=== PATIENT | female | born 1995 | race African-American/Black ===

== ENCOUNTER 2022-10-12 16:01 | Emergency (ER) | payer OTHER ==
[2022-10-12] MEDS ORDERED: NA CHLORIDE 0.9% 1,000 ML ONE ×2 (17:09→20:47)
[2022-10-12 17:21] LABS: Urine Blood 3+ (Negative); Urine Glucose Negative (Negative); Urine Protein 2+ (Negative); Urine Specific Gravity 1.025 (1.005-1.030); Urine pH 6.5 (5.0-7.0)
[2022-10-12] MEDS ORDERED: PROMETHAZINE INJ 25 MG/ML AMP ONE (17:29)
[2022-10-12 17:30] LABS: Urine Bacteria 20-50 /HPF (<20); Urine Mucus 3+ /HPF (None Seen); Urine RBC >50 /HPF (None Seen); Urine WBC Clump Rare /HPF (None Seen)
[2022-10-12] MEDS ORDERED: NA CHLORIDE 0.9% 250 ML ONE (17:30)
[2022-10-12] MEDS ORDERED: KETOROLAC 30 MG/ML INJ ONE (17:30)
[2022-10-12 17:35] LABS: Urine Specific Gravity/Preg 1.025 (1.005-1.030)
[2022-10-12] MEDS ORDERED: CEFTRIAXONE 1000 MG/VIAL ONE (18:11)
[2022-10-12 22:13] VITALS: TEMP 98
[2022-10-12 22:18] VITALS: BP 108/65; O2SAT 100
--- NOTE | 2022-10-25 16:19 | ER ---
Nurse's Notes [facility] Name: Johanna Meneses Age: 27 yrs Sex: Female : 1995 Arrival Date: 10/12/2022 Time: 16:06 Bed 12 Private MD: Diagnosis: Migraine, unspecified, not intractable, without status migrainosus;UTI/ Urinary tract infection, site not specified Presentation: 10/12 16:20 Chief complaint: Patient states: "The past 3 years I've been getting migraines. I've mb9 had this one for 3 days and its not getting better. the lights are making my head spin. Tyle"nol isn't helping. Coronavirus screen: Vaccine status: Patient reports being unvaccinated. Ebola Screen: No symptoms or risks identified at this time. Initial Sepsis Screen: Does the patient meet any 2 criteria? No. Patient's initial sepsis screen is negative. Does the patient have a suspected source of infection? No. Patient's initial sepsis screen is negative. Risk Assessment: Do you want to hurt yourself or someone else? Patient reports no desire to harm self or others. Onset of symptoms was October 10, 2022. 16:20 Method Of Arrival: Ambulatory [facility] 16:20 Acuity: OLYA 3 mb9 Triage Assessment: 16:25 Headache History: The patient has had previous headaches and this one is similar to mb9 previous episodes. General: Appears in no apparent distress. Behavior is calm, cooperative. Pain: Complains of pain in right side of head Pain does not radiate. Pain currently is 10 out of 10 on a pain scale. Quality of pain is described as throbbing, Pain began 2-3 days ago. Is continuous. EENT: No signs and/or symptoms were reported regarding the EENT system. Neuro: Garcia Agitation-Sedation Scale (RASS): 0 - Alert and Calm Level of Consciousness is awake, alert, obeys commands, Oriented to person, place, time, situation, Appropriate for age Reports dizziness, headache. Cardiovascular: Patient's skin is warm and dry. Respiratory: Airway is patent Respiratory effort is even, unlabored, Respiratory pattern is regular, symmetrical. GI: Patient currently denies nausea. Derm: Skin is pink, warm \\T\\ dry. Musculoskeletal: Range of motion: intact in all extremities. 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 - Social history:: Smoking status: Patient denies any tobacco usage or history of. Screenin:[facility] ED Fall Risk Assessment (Adult) History of falling in the last 3 months, mb9 including since admission No falls in past 3 months (0 pts) Confusion or Disorientation No (0 pts) Intoxicated or Sedated No (0 pts) Impaired Gait No (0 pts) Mobility Assist Device Used No (0 pt) Altered Elimination No (0 pt) Score/Fall Risk Level 0 - 2 = Low Risk Oriented to surroundings, Maintained a safe environment, Educated pt \\T\\ family on fall prevention, incl call for assistance when getting out of bed. Abuse screen: Denies threats or abuse. Nutritional screening: No deficits noted. Tuberculosis screening: No symptoms or risk factors identified. Assessment: 16:27 Reassessment: See triage assessment. mb9 17:30 Neuro: Level of Consciousness is awake, alert, obeys commands, Oriented to person, aa5 place, time, situation. Respiratory: Airway is patent Respiratory effort is even, unlabored, Respiratory pattern is regular, symmetrical. Derm: Skin is dry, Skin is normal, Skin temperature is warm. 18:20 Reassessment: Pt resting in bed with eyes closed, respirations even and unlabored, easy aa5 to awaken to verbal stimuli. . 20:59 Pain: Denies pain. kb3 Vital Signs: 16:20 BP 128 / 74; Pulse 79; Resp 16; Temp 98(O); Pulse Ox 98% ; Weight 93.44 kg; Height 5 mb9 ft. 3 in. ; Pain 10/10; 17:30 BP 107 / 64; Pulse 72; Resp 16 S; Pulse Ox 100% on R/A; aa5 18:20 BP 105 / 64; Pulse 70; Resp 16 S; Pulse Ox 99% on R/A; aa5 20:59 BP 108 / 65; Pulse 69; Resp 18; Pulse Ox 100% ; kb3 16:20 Body Mass Index 36.49 (93.44 kg, 160.02 cm) mb9 16:20 Pain Scale: Adult mb9 Afia Coma Score: 17:19 Eye Response: spontaneous(4). Motor Response: obeys commands(6). Verbal Response: snw oriented(5). Total: 15. ED Course: 16:06 Patient arrived in ED. mr 16:19 Lluvia Fuchs, [facility] snw 16:19 Mark Donald MD is Attending Physician. snw 16:20 Arm band placed on. mb9 16:24 Triage completed. mb9 16:55 Aan Boyle, ANNI is Primary Nurse. mb9 16:56 Bed in low position. Call light in reach. Side rails up X 1. Client placed on mb9 continuous cardiac and pulse oximetry monitoring. NIBP monitoring applied. 17:16 Inserted saline lock: 20 gauge in right antecubital area, using aseptic technique. mb9 17:19 Urine collected: clean catch specimen, cloudy, Urine micro and culture sent to lab. aa5 17:22 Urine Culture Sent. kj1 17:22 Urine Microscopic Only Sent. kj1 20:59 No provider procedures requiring assistance completed. IV discontinued, intact, kb3 bleeding controlled, No redness/swelling at site. Administered Medications: 17:15 Drug: NS 0.9% IV 1000 ml Route: IV; Rate: 1000 ml; Site: right antecubital; mb9 18:19 Follow up: IV Status: Completed infusion; IV Intake: 1000ml aa5 17:30 Drug: Ketorolac IVP 15 mg Route: IVP; Site: right antecubital; aa5 18:20 Follow up: Response: No adverse reaction aa5 17:30 Drug: Promethazine IVP 25 mg Route: IVP; Site: right antecubital; aa5 18:20 Follow up: Response: No adverse reaction aa5 17:30 Drug: NS 0.9% IV 250 ml Route: IV; Rate: 250 bolus; Site: right antecubital; aa5 18:19 Follow up: IV Status: Completed infusion; IV Intake: 250ml aa5 20:49 Follow up: Response: No adverse reaction; IV Status: Completed infusion; IV Intake: kb3 250ml 18:15 Drug: Rocephin IV 1 grams Route: IV; Rate: calculated rate; Site: right antecubital; aa5 20:48 Follow up: Response: No adverse reaction; IV Status: Completed infusion; IV Intake: kb3 100ml 20:48 Not Given (Patient Refused): NS 0.9% IV 1000 ml IV at 1 bolus Per protocol; 1000 mL kb3 bolus Medication: 16:27 VIS not applicable for this client. mb9 Intake: 18:19 IV: 250ml; Total: 250ml. aa5 18:19 IV: 1000ml; Total: 1250ml. aa5 20:48 IV: 100ml; Total: 1350ml. kb3 20:49 IV: 250ml; Total: 1600ml. kb3 Outcome: 20:38 Discharge ordered by MD. snw 20:59 Discharged to home ambulatory. kb3 20:59 Condition: stable 20:59 Discharge instructions given to patient, Instructed on discharge instructions, follow up and referral plans. medication usage, Demonstrated understanding of instructions, follow-up care, medications, Prescriptions given X 2. 21:00 Patient left the ED. kb3 Signatures: Lluvia Fuchs, EARLY CHILDHOOD SERVICES COORDINATOR-C EARLY CHILDHOOD SERVICES COORDINATOR-Csnw Ana Mccann Audri, RN RN aa5 [employer] kj1 Elva Valdes, RN RN kb3 Ana Boyle, RN RN mb9 Corrections: (The following items were deleted from the chart) 17:08 16:20 Acuity: OLYA 4 mb9 mb9
--- NOTE | 2022-10-25 16:19 | EDPHYS ---
Physician Documentation [facility] Name: Johanna Meneses Age: 27 yrs Sex: Female : 1995 Arrival Date: 10/12/2022 Time: 16:06 Bed 12 Private MD: ED Physician Mark Donald HPI: 10/12 17:12 This 27 yrs old Black Female presents to ER via Ambulatory with complaints of Headache. snw 17:12 The patient complains of pain to the top of head and forehead. The patient describes snw the headache as constant. Onset: The symptoms/episode began/occurred 3 day(s) ago, and became persistent. Associated signs and symptoms: Pertinent positives: dizziness, Photophobia. Severity of symptoms: At its worst the pain was moderate, in the emergency department the pain is unchanged, despite home interventions. Headache History: The patient has had previous headaches and this one is similar to previous episodes, and this one is less severe than previous episodes. The patient has experienced similar episodes in the past, multiple times. The patient has not recently seen a physician. 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 - Social history:: Smoking status: Patient denies any tobacco usage or history of. ROS: 17:12 Constitutional: Negative for fever, chills, and weight loss, Eyes: Negative for injury, snw pain, redness, and discharge, ENT: Negative for injury, pain, and discharge, Neck: Negative for injury, pain, and swelling, Cardiovascular: Negative for chest pain, palpitations, and edema, Respiratory: Negative for shortness of breath, cough, wheezing, and pleuritic chest pain, Abdomen/GI: Negative for abdominal pain, nausea, vomiting, diarrhea, and constipation, Back: Negative for injury and pain, : Negative for injury, bleeding, discharge, and swelling, MS/Extremity: Negative for injury and deformity, Skin: Negative for injury, rash, and discoloration, Psych: Negative for depression, anxiety, suicide ideation, homicidal ideation, and hallucinations. 17:12 Neuro: Positive for headache, of the top of head and forehead. Exam: 17:11 Constitutional: This is a well developed, well nourished patient who is awake, alert, snw and in no acute distress. Head/Face: Normocephalic, atraumatic. Eyes: Pupils equal round and reactive to light, extra-ocular motions intact. Lids and lashes normal. Conjunctiva and sclera are non-icteric and not injected. Cornea within normal limits. Periorbital areas with no swelling, redness, or edema. ENT: Nares patent. No nasal discharge, no septal abnormalities noted. Tympanic membranes are normal and external auditory canals are clear. Oropharynx with no redness, swelling, or masses, exudates, or evidence of obstruction, uvula midline. Mucous membranes moist. Neck: Trachea midline, no thyromegaly or masses palpated, and no cervical lymphadenopathy. Supple, full range of motion without nuchal rigidity, or vertebral point tenderness. No Meningismus. Chest/axilla: Normal chest wall appearance and motion. Nontender with no deformity. No lesions are appreciated. Cardiovascular: Regular rate and rhythm with a normal S1 and S2. No gallops, murmurs, or rubs. Normal PMI, no JVD. No pulse deficits. Respiratory: Lungs have equal breath sounds bilaterally, clear to auscultation and percussion. No rales, rhonchi or wheezes noted. No increased work of breathing, no retractions or nasal flaring. Abdomen/GI: Soft, non-tender, with normal bowel sounds. No distension or tympany. No guarding or rebound. No evidence of tenderness throughout. Back: No spinal tenderness. No costovertebral tenderness. Full range of motion. Skin: Warm, dry with normal turgor. Normal color with no rashes, no lesions, and no evidence of cellulitis. MS/ Extremity: Pulses equal, no cyanosis. Neurovascular intact. Full, normal range of motion. Neuro: Awake and alert, GCS 15, oriented to person, place, time, and situation. Cranial nerves II-XII grossly intact. Motor strength 5/5 in all extremities. Sensory grossly intact. Cerebellar exam normal. Normal gait. Psych: Awake, alert, with orientation to person, place and time. Behavior, mood, and affect are within normal limits. Vital Signs: 16:20 BP 128 / 74; Pulse 79; Resp 16; Temp 98(O); Pulse Ox 98% ; Weight 93.44 kg; Height 5 mb9 ft. 3 in. ; Pain 10/10; 17:30 BP 107 / 64; Pulse 72; Resp 16 S; Pulse Ox 100% on R/A; aa5 18:20 BP 105 / 64; Pulse 70; Resp 16 S; Pulse Ox 99% on R/A; aa5 20:59 BP 108 / 65; Pulse 69; Resp 18; Pulse Ox 100% ; kb3 16:20 Body Mass Index 36.49 (93.44 kg, 160.02 cm) mb9 16:20 Pain Scale: Adult mb9 Afia Coma Score: 17:19 Eye Response: spontaneous(4). Motor Response: obeys commands(6). Verbal Response: snw oriented(5). Total: 15. MDM: 17:02 Patient medically screened. snw 17:19 Differential diagnosis: migraine, sinusitis, uti. Data reviewed: vital signs, nurses snw notes, lab test result(s). 20:08 Counseling: I had a detailed discussion with the patient and/or guardian regarding: the snw historical points, exam findings, and any diagnostic results supporting the discharge/admit diagnosis, the need for outpatient follow up, for definitive care, to return to the emergency department if symptoms worsen or persist or if there are any questions or concerns that arise at home. Response to treatment: the patient's symptoms have markedly improved after treatment, patient is well hydrated. Pt is sleeping in no distress, pain level on awakening her decreased to 3-4. Will need ride or to sleep a bit longer. Special discussion: Based on the history and exam findings, there is no indication for further emergent testing or inpatient evaluation. I discussed with the patient/guardian the need to see the primary care provider for further evaluation of the symptoms. 10/12 17:03 Order name: Urine Culture snw 10/12 17:03 Order name: Urine Microscopic Only; Complete Time: 17:31 snw 10/12 17:21 Order name: Urine Dipstick-Ancillary; Complete Time: 17:25 EDMS 10/12 17:22 Order name: Urine --Ancillary (enter results); Complete Time: 17:36 kj1 10/12 17:03 Order name: Urine Dipstick-Ancillary (obtain specimen); Complete Time: 17:19 snw 10/12 17:03 Order name: Urine Test (obtain specimen); Complete Time: 17:19 snw Administered Medications: 17:15 Drug: NS 0.9% IV 1000 ml Route: IV; Rate: 1000 ml; Site: right antecubital; mb9 18:19 Follow up: IV Status: Completed infusion; IV Intake: 1000ml aa5 17:30 Drug: Ketorolac IVP 15 mg Route: IVP; Site: right antecubital; aa5 18:20 Follow up: Response: No adverse reaction aa5 17:30 Drug: Promethazine IVP 25 mg Route: IVP; Site: right antecubital; aa5 18:20 Follow up: Response: No adverse reaction aa5 17:30 Drug: NS 0.9% IV 250 ml Route: IV; Rate: 250 bolus; Site: right antecubital; aa5 18:19 Follow up: IV Status: Completed infusion; IV Intake: 250ml aa5 20:49 Follow up: Response: No adverse reaction; IV Status: Completed infusion; IV Intake: kb3 250ml 18:15 Drug: Rocephin IV 1 grams Route: IV; Rate: calculated rate; Site: right antecubital; aa5 20:48 Follow up: Response: No adverse reaction; IV Status: Completed infusion; IV Intake: kb3 100ml 20:48 Not Given (Patient Refused): NS 0.9% IV 1000 ml IV at 1 bolus Per protocol; 1000 mL kb3 bolus Disposition: 10/13 16:54 Co-signature as Attending Physician, Mark Donald MD I reviewed the patient's care rt provided by the Advanced Practice Provider and agree with the diagnosis and treatment plan. Disposition Summary: 10/12/22 20:38 Discharge Ordered Location: Home snw Condition: Stable snw Diagnosis - Migraine, unspecified, not intractable, without status migrainosus snw - UTI/ Urinary tract infection, site not specified snw Followup: snw - With: Emergency Department - When: As needed - Reason: Worsening of condition Followup: snw - With: Private Physician - When: 2 - 3 days - Reason: Recheck today's complaints, Continuance of care, Re-evaluation by your physician Discharge Instructions: - Discharge Summary Sheet snw - Dehydration, Adult snw - Migraine Headache snw - Urinary Tract Infection, Adult snw - Rehydration, Adult snw Forms: - Work release form snw - Medication Reconciliation Form snw - Thank You Letter snw - Antibiotic Education snw - Prescription Opioid Use snw Prescriptions: - Augmentin 875-125 mg Oral Tablet - take 1 tablet by ORAL route every 12 hours for 10 days; 20 tablet; Refills: 0, snw Product Selection Permitted - promethazine 25 mg Oral Tablet - take 1 tablet by ORAL route every 6 hours As needed; 20 tablet; Refills: 0, snw Product Selection Permitted Signatures: Dispatcher [employer] EDMS Lluvia Fuchs, ETCHED CIRCUIT PROCESSOR-C ETCHED CIRCUIT PROCESSOR-Csnw Belkis Oropeza, RN RN aa5 Ana Boyle RN RN mb9 Mark Donald MD MD rt Elva Valdes RN kb3
== END 2022-10-12 21:00 | disposition home or self-care (01) ==
LOC: ER 16:01
DX: G43.009 Migraine without aura, not intractable, without status migrainosus (principal); N39.0 Urinary tract infection, site not specified
CPT/HCPCS: 96365; 87088; 87086; 81025; 87077; 87186; 96375; 99284; 96366; J2550; J7050; J7030 ×2; 81003; 81015

== ENCOUNTER 2023-07-02 11:29 | Emergency (ER) | payer OTHER, SELFPAY ==
--- OUTSIDE RECORDS SUMMARY | 2023-07-02 11:33 | XMS REPORT | Continuity of Care Document ---
:1995 Author Organization [facility] t Address [address] [facility]. [address] [place] [address] Care Team Providers Name Role Phone Pcp MD, Charlotte Primary Care Physician Unavailable ELHAM KAUR Attending Clinician Unavailable Kiara Holder MD Attending Clinician Travis Sandoval MD Attending Clinician Donn Benjamin DO Attending Clinician ADI LACY Attending Clinician Unavailable HEIDI PICKENS Attending Clinician Unavailable MAL FRANCISCO Attending Clinician Unavailable NOAH BOOTHE Attending Clinician Unavailable Payers Payer Name Policy Type Policy Number Effective Date Expiration Date S [employer]BS PPO POS EPO [id number] 2014 CHOICE 00:00:00 MEDICAID [facility] [id number] 2018 00:00:00 Problems This patient has no known problems. Allergies, Adverse Reactions, Alerts Allergy Allergy Status Severity Reaction(s) Onset Inactive Treating Comm ents Source Name Type Date Date Clinician NO KNOWN Allergy Active [facility] ALL[facility] S Family History Family Member Diagnosis Comments Start Date Stop Date Source Natural father No Known Problem [facility] Natural mother No Known Problem [facility] Social History Social Habit Start Date Stop Date Quantity Comments Source History SDOH [facility] Alcohol Frequency Medical Center History SDOH [facility] Alcohol Std Drinks [facility] History SDOH [facility] Alcohol Binge Medical [facility] Sexual orientation [facility] Alcohol intake 2022-01-14 2022-01-14 Current drinker [facility]IANA [facility]00 of [facility] (finding) Tobacco use and 2020-03-04 2020-03-04 Smokeless tobacco [facility] exposure 00:00:00 00:00:00 non-user [facility] Alcohol Comment 2020-03-04 2020-03-04 socially DIANA Rivera kes 00:00:00 00:00:00 [facility] Center Sex Assigned At [birth year] DIANA Owens 00:00:00 00:00:00 Medical Center Smoking Status Start Date Stop Date Source Never smoked tobacco [facility] Medications Ordered Filled Start Stop Current Ordering Indication Dosage Frequency Signature Comments Components Source Medication Medication Date Date Medication? Clinician (SIG) Name Name doxycycline 2020- No 100mg Q.5D Take [address] (VIBRA-TABS 7-25 08-04 tablet [facility] ) 100 MG 00:00: 23:59 (100 mg Medic al tablet 00 :00 total) by Center mouth 2 (two) times daily for 10 days. doxycycline 2020- No 100mg Q.5D Take [address] (VIBRA-TABS 7-25 08-04 tablet [facility] ) 100 MG 00:00: 23:59 (100 mg Medic al tablet 00 :00 total) by Center mouth 2 (two) times daily for 10 days. amoxicillin 2020- No 500mg Q.5D Take [address] (AMOXIL) 01-02 capsule [facility] 500 MG 00:00: 23:59 (500 mg Medical capsule 00 :00 total) by Center mouth 2 (two) times daily for 20 doses. amoxicillin 2020- No 500mg Q.5D Take [address] (AMOXIL) 01-02 [facility] 500 MG 00:00: 23:59 (500 mg Medical capsule 00 :00 total) by Center mouth 2 (two) times daily for 20 doses. diphenhydrA 2020- No 1{tbl} QD Take [address] MINE-acetam 3-31 -31 tablet by Armida hodges inophen 12:21: 00:00 mouth Medical (TYLENOL 22 :00 daily. Center PM) 25-500 mg Tab diphenhydrA 2020- No 1{tbl} QD Take [address] MINE-acetam 11-01 tablet by Armida mendenhall 12:21: 00:00 mouth Medical (TYLENOL 22 :00 daily. Center PM) 25-500 mg Tab naproxen 2020- No 500mg Take 1 [facility] (NAPROSYN[facility] 11-01 [facility] 500 MG 00:00: 00:00 (500 mg Medical tablet 00 :00 total) by Center mouth 2 (two) times daily with breakfast and dinner. naproxen 2020- No 500mg Take 1 [facility] (NAPROSYN[facility] 11-01 [facility] 500 MG 00:00: 00:00 (500 mg Medical tablet 00 :00 total) by Center mouth 2 (two) times daily with breakfast and dinner. Vital Signs Vital Name Observation Time Observation Value Comments Source HEIGHT 2022-01-14 13:15:00 160 cm WEIGHT 2022-01-14 13:15:00 89.812 kg HEIGHT 2022-01-14 13:15:00 160 cm WEIGHT 2022-01-14 13:15:00 89.812 kg HEIGHT 2021-02-25 08:56:00 157.5 cm WEIGHT 2021-02-25 08:56:00 92.08 kg HEIGHT 2021-02-25 08:56:00 157.5 cm WEIGHT 2021-02-25 08:56:00 92.08 kg HEIGHT 2021-01-02 10:56:00 160 cm WEIGHT 2021-01-02 10:56:00 94.802 kg HEIGHT 2021-01-02 10:56:00 160 cm WEIGHT 2021-01-02 10:56:00 94.802 kg WEIGHT 2020-11-01 12:32:00 93.895 kg HEIGHT 2020-11-01 12:32:00 160 cm WEIGHT 2020-11-01 12:32:00 93.895 kg HEIGHT 2020-11-01 12:32:00 160 cm HEIGHT 2020-03-04 00:00:00 160 cm WEIGHT 2020-03-04 00:00:00 96.163 kg Systolic blood 2021-02-25 10:39:00 150 mm[Hg] [facility] Diastolic blood 2021-02-25 10:39:00 76 mm[Hg] [facility] Heart rate 2021-02-25 10:39:00 108 /min [facility] Respiratory rate 2021-02-25 10:39:00 20 /min [facility] Oxygen saturation in 2021-02-25 10:39:00 98 /min [facility] Arterial blood by Medical Ce nter Pulse oximetry Body temperature 2021-02-25 08:56:00 37.72 Elizabeth [facility] Body height 2021-02-25 08:56:00 157.5 cm [facility] Body weight 2021-02-25 08:56:00 92.08 kg [facility] BMI 2021-02-25 08:56:00 37.13 kg/m2 [facility] Procedures Procedure Date / Time Performed Performing Clinician Sourc e XR CHEST 2 VIEWS 2021-02-25 10:19:00 Kiara Holder I [facility] Plan of Care Planned Activity Planned Date Details Comments Source Future Scheduled 2029-01-05 DTAP/TDAP/TD VACCINES ([address] [facility] Test 00:00:00 - Td or Tdap) [code = Medica l Center DTAP/TDAP/TD VACCINES (3 - Td or Tdap)] Future Scheduled 2029-01-05 DTAP/TDAP/TD VACCINES ([address] [facility] Test 00:00:00 - Td or Tdap) [code = Medica l Center DTAP/TDAP/TD VACCINES (3 - Td or Tdap)] Future Scheduled 2029-01-05 DTAP/TDAP/TD VACCINES ([address] [facility] Test 00:00:00 - Td or Tdap) [code = Medica l Center DTAP/TDAP/TD VACCINES (3 - Td or Tdap)] Future Scheduled 2023-04-04 Influenza Vaccine (#1) [facility] 00:00:00 [code = Influenza Vaccine Ms dicvt Center (#1)] Future Scheduled 2023-01-[address] [facility] Test 00:00:00 Counseling and Screening Med ical Center (12+) [code = Tobacco Cessation Counseling and Screening (12+)] Future Scheduled 2022-08-[address] [facility] Test 00:00:00 (12+) [code = DEPRESSION Med ical Center SCREENING (12+)] Future Scheduled 2021-04-04 INFLUENZA VACCINE (#1) [facility] 00:00:00 [code = INFLUENZA VACCINE Me dical Center (#1)] Future Scheduled 2021-04-04 INFLUENZA VACCINE (#1) [facility] 00:00:00 [code = INFLUENZA VACCINE Me dical Center (#1)] Future Scheduled 2020-08-[address] [facility] Test 00:00:00 (12+) [code = DEPRESSION Med ical Center SCREENING (12+)] Future Scheduled 2020-08-[address] [facility] Test 00:00:00 (12+) [code = DEPRESSION Med ical Center SCREENING (12+)] Future Scheduled 2015 Screening for malignant [facility] Test 00:00:00 neoplasm of cervix Medical C enter (procedure) [code = 899620288] Future Scheduled 2015 Screening for malignant [facility] Test 00:00:00 neoplasm of cervix Medical C enter (procedure) [code = 460167277] Future Scheduled 2015 Screening for malignant [facility] Test 00:00:00 neoplasm of cervix Medical C enter (procedure) [code = 450481551] Future Scheduled 2014 Lipid panel (procedure) [facility] Test 00:00:00 [code = 53458337] Medical Ce nter Future Scheduled 2014 Lipid panel (procedure) [facility] Test 00:00:00 [code = 25871205] Medical Ce nter Future Scheduled 2014 Lipid panel (procedure) [facility] Test 00:00:00 [code = 13677210] Medical Ce nter Future Scheduled 2012 HEPATITIS C SCREENING [facility] Test 00:00:00 [code = HEPATITIS C Medical Center SCREENING] Future Scheduled 2012 HEPATITIS C SCREENING [facility] 00:00:00 [code = HEPATITIS C Medical Center SCREENING] Future Scheduled 2012 HEPATITIS C SCREENING [facility] 00:00:00 [code = HEPATITIS C Medical Center SCREENING] Future Scheduled [address] [facility] Test 00:00:00 virus screening Medical Cent er (procedure) [code = 732021167] Future Scheduled 2006 COVID-19 VACCINE (1) [facility] Test 00:00:00 [code = COVID-19 VACCINE Med ical Center (1)] Future Scheduled 2006 COVID-19 VACCINE (1) [facility] Test 00:00:00 [code = COVID-19 VACCINE Med ical Center (1)] Future Scheduled 2000 PNEUMOCOCCAL VACCINE 0-[address] [facility] Test 00:00:00 YRS (1 of 2 - PPSV23) Medica l Center [code = PNEUMOCOCCAL VACCINE 0-64 YRS (1 of 2 - PPSV23)] Future Scheduled 2000 PNEUMOCOCCAL VACCINE 0-[address] [facility] Test 00:00:00 YRS (1 of 2 - PPSV23) Medica l Center [code = PNEUMOCOCCAL VACCINE 0-64 YRS (1 of 2 - PPSV23)] Future Scheduled 1995 COVID-19 VACCINE (#1) [facility] 00:00:00 [code = COVID-19 VACCINE Med ical Center (#1)] Encounters Start End Encounter Admission Attending Care Care Encounter Source Date/Time Date/Time Type Type Clinicians Facility Department ID 2022-01-14 2022-01-14 Emergency ER [facility], [facility] Emergency [id number] [facility] 13:15:00 14:50:00 [facility] 2021-03-05 2021-03-05 Outpatient [facility] PENFGZH PRQ COH 00:00:00 00:00:00 WE- 3 2021-02-25 2021-02-25 Emergency [facility], [facility] [id number] [address] 08:45:00 11:38:00 [facility] 2021-02-25 2021-02-25 Emergency ER [facility] Emergency [id number] SLE 08:45:00 08:45:00 2021-02-25 2021-02-[address] [facility] [id number] [facility]00 [facility] 2021-01-02 2021-01-02 Emergency Othee, [facility] [id number] 10:44:00 11:47:00 [facility] 2021-01-02 2021-01-02 Emergency ER [facility] Emergency [id number] SLE 10:44:00 10:44:00 2021-01-02 2021-01-[address] [facility] [id number] [facility] 00:[facility]00 [facility] 2020-11-01 2020-11-01 Emergency Totz, [facility] [id number] 12:20:00 13:00:00 [facility] 2020-11-01 2020-11-01 Emergency ER [facility] Emergency [id number] SLE 12:19:00 12:19:00 2020-11-01 2020-11-[address] [facility] [id number] [facility] 00:[facility] 00:[facility]00 [facility] 2020-03-04 2020-03-04 Emergency ER LACY, [facility] Emergency [id number] SLE 11:18:00 11:18:00 ARANYANEE Results Test Description Test Time Test Comments Results Result Comments Source SCREEN, URINE 2022-01-14 13:59:58 Test Item Value Reference Range Interpretation Comme nts TEST URINE (BEAKER) (test code = 583) Negative Negati ve RAD, SHOULDER, COMPLETE (MIN 2 VIEWS), [id number] 13:51:00Reason for exam:- >SHOULDER INJURYReason for exam:->fall directly on right shoulder.Is the patient ?->Unknown [facility] 1995 Sex: FFINAL REPORT Exam: RAD, SHOULDER, COMPLETE (MIN 2 VIEWS), RIGHTDate: 01/14/2022 1:50 PM Indication:SHOULDER INJURYfall directly on right shoulder.Comparison: None DISCUSSION/IMPRESSION: AP internal/external and Y views of the right shoulder were obtained. Osseous structures appear well mineralized. Osseous structures appear intact. Joint spaces are grossly preserved. Coracoclavicular and acromioclavicular distances are within normal limits. Soft tissues are within normal limits. No radiopaque foreign bodies. Signed: Avani Frye MDReport Verified Date/Time: 01/14/2022 13:51:16 Reading Location: [facility] Radiology Reading Room RAD, CHEST, 2 [id number] 10:32:00Reason for exam:->COUGHIs the patient ?->NoShould this be performed at the bedside?->No [facility] 1995 Sex: FFINAL REPORT Comparison: 09/08/2018 History: Cough Findings: There is airspace consolidation in the upper left lung. The may also be some airspace consolidation at the left lung base. The right lung appears clear. No pleural effusions or pneumothorax. The heart shadow and pulmonary vascularity are normal in appearance. The thoracic aorta appears normal in caliber. No skeletal abno rmalities are visualized. Impression: Left-sided pneumonia. Signed: Naya Salvador Verified Date/Time: 02/25/2021 10:32:45 Reading Location: [address] Transitional Reading Room Electronicallysigned by: NAYA SALVADOR MD on 02/25/2021 10:32 AMRAD, KNEE, COMPLETE (4 VIEWS), [id number] 12:07:00Reason for exam:->KNEE PAINIs the patient ?->NoShould this be performed at the bedside?->NoFINAL REPORT RAD, KNEE, COMPLETE (4 VIEWS), RIGHT INDICATION: KNEE PAIN COMPARISON: None TECHNIQUE: AP, lateral and oblique radiographs of the knee FINDINGS/IMPRESSION:No acute fracture or malalignment Signed: Torsten Cheng Verified Date/Time: 03/04/2020 12:07:53 Reading Location: [place] [id number] Neuro Reading Room Electronically signed by: TORSTEN CHENG MD on03/04/2020 12:07 PMRAD, CHEST, 2 VIEWS 2018-09-08 23:48:00Reason for exam:->URIReason for exam:->EMESISIs the patient ?->YesFINAL REPORT EXAMINATION: 2 view chest CLINICAL INDICATION: Infection. Emesis. IMPRESSION: No evidence of a discrete pneumonia, pulmonary edema or pleural effusion. The heart is mildly prominent. Mediastinal contours are sharp and smooth. No definite evidence of an acute osseous abnormality or pneumothorax. Signed: Bianca Montielort Verified Date/Time: 09/08/2018 23:48:36 Reading Location: [address] Reading Room Electronically signed by: BIANCA MONTIEL M.D. on 0 09/08/2018 11:48 PMRAPID INFLUENZA A&B [id number] 23:42:00 Test Item Value Reference Range Interpretation Comments RAPID INFLUENZA A AG (BEAKER) Negative Negative, Inconclusive (test code = 1622) RAPID INFLUENZA B AG (BEAKER) Negative Negative, Inconclusive (test code = 1623) URINALYSIS W/ REFLEX URINE [id number] 23:40:00 Test Item Value Reference Range Interpretation Comments COLOR (BEAKER) (test Dark Yellow code = 470) CLARITY (BEAKER) Cloudy (test code = 469) SPECIFIC GRAVITY UA 1.033 1.001-1.035 Refracto meter = 1.033 (BEAKER) (test code = 468) PH UA (BEAKER) (test 6.0 5.0-8.0 code = 467) PROTEIN UA (BEAKER) 100 mg/dL Negative A (test code = 464) GLUCOSE UA (BEAKER) Negative Negative (test code = 365) KETONES UA (BEAKER) 40 mg/dL Negative A (test code = 371) BILIRUBIN UA (BEAKER) Positive Negative A (test code = 462) BLOOD UA (BEAKER) Negative Negative (test code = 461) NITRITE UA (BEAKER) Negative Negative (test code = 465) LEUKOCYTE ESTERASE UA Negative Negative (BEAKER) (test code = 466) UROBILINOGEN UA 4.0 mg/dL 0.2-1.0 H (BEAKER) (test code = 463) BACTERIA (BEAKER) Few (test code = 517) MUCUS (BEAKER) (test Moderate code = 1574) TRICHOMONAS (BEAKER) Moderate (test code = 1586) RBC UA-MANUAL <5 /HPF (BEAKER) (test code = 1659) WBC UA-MANUAL <5 /HPF (BEAKER) (test code = 1661) SQUAMOUS EPITHELIAL 10-20 /HPF MANUAL (BEAKER) (test code = 1663) SOURCE(BEAKER) (test code = 2795) SCREEN, [id number] 23:24:00 Test Item Value Reference Range Interpretation Comments TEST URINE (BEAKER) (test Positive code = 583) BASIC METABOLIC [id number] 23:11:00 Test Item Value Reference Range Interpretation Comments SODIUM (BEAKER) 135 meq/L 135-148 (test code = 381) POTASSIUM (BEAKER) 3.8 meq/L 3.6-5.5 (test code = 379) CHLORIDE (BEAKER) 102 meq/L 98-106 (test code = 382) CO2 (BEAKER) (test 23 meq/L 24-32 L code = 355) BLOOD UREA NITROGEN 9 mg/dL 10-26 L (BEAKER) (test code = 354) CREATININE (BEAKER) 0.61 mg/dL 0.50-1.20 (test code = 358) GLUCOSE RANDOM 89 mg/dL 70-110 (BEAKER) (test code = 652) CALCIUM (BEAKER) 9.1 mg/dL 8.5-10.5 (test code = 697) EGFR (BEAKER) (test 146 mL/min/1.73 ESTIM ATED GFR IS code = 1092) sq m NOT ACCURATE CREATININE CLEARANCE IN PREDICTING GLOMERULAR FILTRATION RATE . ESTIMATED GFR I S NOT APPLICABLE FOR DIALYSIS PATIEN TS. CBC W/PLT COUNT & AUTO [id number] 23:07:00 Test Item Value Reference Range Interpretation Comments WHITE BLOOD CELL COUNT (BEAKER) 7.8 K/ L 4.0-10.0 (test code = 775) RED BLOOD CELL COUNT (BEAKER) 3.73 M/ L 4.00-5.00 L (test code = 761) HEMOGLOBIN (BEAKER) (test code = 11.8 GM/DL 12.0-15.0 L 410) HEMATOCRIT (BEAKER) (test code = 34.5 % 36.0-45.0 L 411) MEAN CORPUSCULAR VOLUME (BEAKER) 92.3 fL 82.0-99.0 (test code = 753) MEAN CORPUSCULAR HEMOGLOBIN 31.5 pg 27.0-33.0 (BEAKER) (test code = 751) MEAN CORPUSCULAR HEMOGLOBIN CONC 34.1 GM/DL 32.0-36.0 (BEAKER) (test code = 752) RED CELL DISTRIBUTION WIDTH 11.5 % 10.3-14.2 (BEAKER) (test code = 412) PLATELET COUNT (BEAKER) (test 224 K/CU MM 150-430 code = 756) MEAN PLATELET VOLUME (BEAKER) 8.5 fL 6.5-10.5 (test code = 754) NEUTROPHILS RELATIVE PERCENT 79 % (BEAKER) (test code = 429) LYMPHOCYTES RELATIVE PERCENT 11 % (BEAKER) (test code = 430) MONOCYTES RELATIVE PERCENT 9 % (BEAKER) (test code = 431) EOSINOPHILS RELATIVE PERCENT 1 % (BEAKER) (test code = 432) BASOPHILS RELATIVE PERCENT 0 % (BEAKER) (test code = 437) NEUTROPHILS ABSOLUTE COUNT 6.17 K/ L 1.80-8.00 (BEAKER) (test code = 670) LYMPHOCYTES ABSOLUTE COUNT 0.84 K/ L 1.48-4.50 L (BEAKER) (test code = 414) MONOCYTES ABSOLUTE COUNT (BEAKER) 0.67 K/ L 0.00-1.30 (test code = 415) EOSINOPHILS ABSOLUTE COUNT 0.10 K/ L 0.00-0.50 (BEAKER) (test code = 416) BASOPHILS ABSOLUTE COUNT (BEAKER) 0.03 K/ L 0.00-0.20 (test code = 417) URINALYSIS W/ REFLEX URINE [id number] 20:58:00 Test Item Value Reference Range Interpretation Comments COLOR (BEAKER) (test Yellow code = 470) CLARITY (BEAKER) Cloudy (test code = 469) SPECIFIC GRAVITY UA 1.030 1.001-1.035 Refracto meter = 1.030 (BEAKER) (test code = 468) PH UA (BEAKER) (test 6.5 5.0-8.0 code = 467) PROTEIN UA (BEAKER) 100 mg/dL Negative A (test code = 464) GLUCOSE UA (BEAKER) Negative Negative (test code = 365) KETONES UA (BEAKER) Trace Negative A (test code = 371) BILIRUBIN UA (BEAKER) Negative Negative (test code = 462) BLOOD UA (BEAKER) Large Negative A (test code = 461) NITRITE UA (BEAKER) Negative Negative (test code = 465) LEUKOCYTE ESTERASE UA Large Negative A (BEAKER) (test code = 466) UROBILINOGEN UA 1.0 mg/dL 0.2-1.0 (BEAKER) (test code = 463) BACTERIA (BEAKER) Moderate (test code = 517) RBC UA-MANUAL 20-50 /HPF (BEAKER) (test code = 1659) WBC UA-MANUAL >100 /HPF (BEAKER) (test code = 1661) SQUAMOUS EPITHELIAL 5-10 /HPF MANUAL (BEAKER) (test code = 1663) SOURCE(BEAKER) (test code = 2795) SCREEN, [id number] 20:38:00 Test Item Value Reference Range Interpretation Comments TEST URINE (BEAKER) (test Positive code = 583) URINALYSIS W/ REFLEX URINE [id number] 22:33:00 Test Item Value Reference Range Interpretation Comments COLOR (BEAKER) (test code = Dark Yellow 470) CLARITY (BEAKER) (test code = Slightly Hazy 469) SPECIFIC GRAVITY UA (BEAKER) 1.020 1.001-1.035 (test code = 468) PH UA (BEAKER) (test code = 8.5 5.0-8.0 H 467) PROTEIN UA (BEAKER) (test code 30 mg/dL Negative A = 464) GLUCOSE UA (BEAKER) (test code Negative Negative = 365) KETONES UA (BEAKER) (test code Trace Negative A = 371) BILIRUBIN UA (BEAKER) (test Positive Negative A code = 462) BLOOD UA (BEAKER) (test code = Negative Negative 461) NITRITE UA (BEAKER) (test code Negative Negative = 465) LEUKOCYTE ESTERASE UA (BEAKER) Trace Negative A (test code = 466) UROBILINOGEN UA (BEAKER) (test >= mg/dL 0.2-1.0 H code = 463) BACTERIA (BEAKER) (test code = Few 517) MUCUS (BEAKER) (test code = Few 1574) RBC UA-MANUAL (BEAKER) (test <5 /HPF code = 1659) WBC UA-MANUAL (BEAKER) (test 5-10 /HPF code = 1661) SQUAMOUS EPITHELIAL MANUAL <5 /HPF (BEAKER) (test code = 1663) SOURCE(BEAKER) (test code = 7719) RAPID INFLUENZA A&B [id number] 22:15:00 Test Item Value Reference Range Interpretation Comments RAPID INFLUENZA A AG (BEAKER) Negative Negative, Inconclusive (test code = 1622) RAPID INFLUENZA B AG (BEAKER) Negative Negative, Inconclusive (test code = 1623) CT, BRAIN, WITHOUT [id number] 22:05:00FINAL REPORT CT, BRAIN, WITHOUT CONTRAST CLINICAL INDICATION: Headache, acute, norm neuro exam COMPARISON: None TECHNIQUE: Noncontrast axial CT imaging of the brain and skull. DOSEREDUCTION: Dose modulation, iterative reconstruction, and/or weight- based adjustment of the mA/kV was utilized to reduce the radiation dose to as low as reasonably achievable. FINDINGS:Cerebral parenchyma: Unremarkable.Midline structures: Normally positioned.Cerebellum and brainstem: Normal.Ventricles: Normal volume.Extra-axial spaces: Unremarkable. Calvarium and skull base: Intact.Paranasal sinuses and mastoid air cells: Visible chambers are clear.Orbital contents: Included portions unremarkable. Additional findings: None. IMPRESSION: No acute intracranial abnormality. If there is persistent clinical concern for intracranial pathology, MR examination is recommended for further characterization. Signed: JR Chau Robert MDReport Verified Date/Time: 03/13/2018 22:05:29 Reading Location: [facility] [id number] CT Body Reading Room REHENSIVE METABOLIC [id number] 22:03:00 Test Item Value Reference Range Interpretation Comments TOTAL PROTEIN 7.4 gm/dL 6.0-8.5 (BEAKER) (test code = 770) ALBUMIN (BEAKER) 4.0 g/dL 3.5-5.0 (test code = 1145) ALKALINE PHOSPHATASE 51 U/L 30-115 (BEAKER) (test code = 346) BILIRUBIN TOTAL 0.6 mg/dL 0.1-1.2 (BEAKER) (test code = 377) SODIUM (BEAKER) (test 138 meq/L 135-148 code = 381) POTASSIUM (BEAKER) 3.9 meq/L 3.6-5.5 (test code = 379) CHLORIDE (BEAKER) 101 meq/L 98-106 (test code = 382) CO2 (BEAKER) (test 25 meq/L 24-32 code = 355) BLOOD UREA NITROGEN 10 mg/dL 10-26 (BEAKER) (test code = 354) CREATININE (BEAKER) 0.90 mg/dL 0.50-1.20 (test code = 358) GLUCOSE RANDOM 98 mg/dL 70-110 (BEAKER) (test code = 652) CALCIUM (BEAKER) 8.8 mg/dL 8.5-10.5 (test code = 697) AST (SGOT) (BEAKER) 22 U/L 5-40 (test code = 353) ALT (SGPT) (BEAKER) 28 U/L 5-50 (test code = 347) EGFR (BEAKER) (test 94 mL/min/1.73 ESTIMA GRACIA GFR IS code = 1092) sq m NOT ACCURATE CREATININE CLEARANCE IN PREDICTING GLOMERULAR FILTRATION RATE . ESTIMATED GFR I S NOT APPLICABLE FOR DIALYSIS PATIEN TS. SCREEN, [id number] 22:00:00 Test Item Value Reference Range Interpretation Comments TEST URINE (BEAKER) (test Negative code = 583) CBC W/PLT COUNT & AUTO [id number] 21:57:00 Test Item Value Reference Range Interpretation Comments WHITE BLOOD CELL COUNT 7.8 10e3/i? L 4.0-10.0 (BEAKER) (test code = 775) RED BLOOD CELL COUNT (BEAKER) 3.58 10e6/i? L 4.00-5.00 L (test code = 761) HEMOGLOBIN (BEAKER) (test code 10.9 g/dL 12.0-15.0 L = 410) HEMATOCRIT (BEAKER) (test code 32.6 % 36.0-45.0 L = 411) MEAN CORPUSCULAR VOLUME 91.2 fL 82.0-99.0 (BEAKER) (test code = 753) MEAN CORPUSCULAR HEMOGLOBIN 30.5 pg 27.0-33.0 (BEAKER) (test code = 751) MEAN CORPUSCULAR HEMOGLOBIN 33.4 g/dL 32.0-36.0 CONC (BEAKER) (test code = 752) RED CELL DISTRIBUTION WIDTH 11.0 % 10.3-14.2 (BEAKER) (test code = 412) PLATELET COUNT (BEAKER) (test 193 10e3/i? L 150-430 code = 756) MEAN PLATELET VOLUME (BEAKER) 8.1 fL 6.5-10.5 (test code = 754) NEUTROPHILS RELATIVE PERCENT 63 % (BEAKER) (test code = 429) LYMPHOCYTES RELATIVE PERCENT 21 % (BEAKER) (test code = 430) MONOCYTES RELATIVE PERCENT 10 % (BEAKER) (test code = 431) EOSINOPHILS RELATIVE PERCENT 5 % (BEAKER) (test code = 432) BASOPHILS RELATIVE PERCENT 1 % (BEAKER) (test code = 437) NEUTROPHILS ABSOLUTE COUNT 4.94 10e3/i? L 1.80-8.00 (BEAKER) (test code = 670) LYMPHOCYTES ABSOLUTE COUNT 1.67 10e3/i? L 1.48-4.50 (BEAKER) (test code = 414) MONOCYTES ABSOLUTE COUNT 0.81 10e3/i? L 0.00-1.30 (BEAKER) (test code = 415) EOSINOPHILS ABSOLUTE COUNT 0.36 10e3/i? L 0.00-0.50 (BEAKER) (test code = 416) BASOPHILS ABSOLUTE COUNT 0.05 10e3/i? L 0.00-0.20 (BEAKER) (test code = 417) URINALYSIS W/ [id number] 22:26:00 Test Item Value Reference Range Interpretation Comments COLOR (BEAKER) (test code = 470) Yellow CLARITY (BEAKER) (test code = Cloudy 469) SPECIFIC GRAVITY UA (BEAKER) 1.020 1.001-1.035 (test code = 468) PH UA (BEAKER) (test code = 467) 6.0 5.0-8.0 PROTEIN UA (BEAKER) (test code = 100 mg/dL Negative A 464) GLUCOSE UA (BEAKER) (test code = Negative Negative 365) KETONES UA (BEAKER) (test code = Negative Negative 371) BILIRUBIN UA (BEAKER) (test code Positive Negative A = 462) BLOOD UA (BEAKER) (test code = Large Negative A 461) NITRITE UA (BEAKER) (test code = Positive Negative A 465) LEUKOCYTE ESTERASE UA (BEAKER) Moderate Negative A (test code = 466) UROBILINOGEN UA (BEAKER) (test 4.0 mg/dL 0.2-1.0 H code = 463) BACTERIA (BEAKER) (test code = Rare 517) RBC UA-MANUAL (BEAKER) (test code 20-50 /HPF = 1659) WBC UA-MANUAL (BEAKER) (test code 50-100 /HPF = 1661) SQUAMOUS EPITHELIAL MANUAL 5-10 /HPF (BEAKER) (test code = 1663) SOURCE(BEAKER) (test code = 2795) SCREEN, [id number] 22:24:00 Test Item Value Reference Range Interpretation Comments TEST URINE (BEAKER) (test Negative code = 583)
[2023-07-02 12:14] LABS: SARS-CoV-2 Antigen Rapid Res Negative (Negative)
--- NOTE | 2023-07-02 13:07 | ER ---
Nurse's Notes [facility] Name: Johanna Meneses Age: 28 yrs Sex: Female : 1995 Arrival Date: 07/02/2023 Time: 11: Bed IW1 Private MD: Diagnosis: Acute upper respiratory infection, unspecified;Fever, unspecified Presentation: 07/02 11:36 Chief complaint: Patient states: cough, nasal congestion, and sore throat x 3-4 days aa5 ago. Coronavirus screen: congestion, cough unrelated to allergies. Ebola Screen: Patient denies travel to an Ebola-affected area in the 21 days before illness onset. Initial Sepsis Screen: Does the patient meet any 2 criteria? No. Patient's initial sepsis screen is negative. Does the patient have a suspected source of infection? No. Patient's initial sepsis screen is negative. Risk Assessment: Do you want to hurt yourself or someone else? Patient reports no desire to harm self or others. Onset of symptoms was June 2023. 11:36 Acuity: OLYA 4 aa5 11:36 Method Of Arrival: Ambulatory aa5 Triage Assessment: 15:17 General: Appears in no apparent distress. Behavior is calm, cooperative, appropriate ll1 for age. 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 - Social history:: Smoking status: Patient denies any tobacco usage or history of. - Family history:: not pertinent. Screenin:33 [facility] ED Fall Risk Assessment (Adult) Score/Fall Risk Level 0 - 2 = Low Risk ll1 Oriented to surroundings, Maintained a safe environment, Educated pt \T\ family on fall prevention, incl call for assistance when getting out of bed, Hourly rounding (assess needs \T\ fall precautionary measures) done. Abuse screen: Denies threats or abuse. Nutritional screening: No deficits noted. Tuberculosis screening: No symptoms or risk factors identified. Assessment: 13:33 General: Appears in no apparent distress. Behavior is calm, cooperative, appropriate ll1 for age. Pain: Complains of pain in throat Quality of pain is described as aching. Respiratory: Reports cough that is. EENT: Reports nasal congestion. EENT: Reports pain when swallowing. Vital Signs: 11:36 BP 129 / 80; Pulse 71; Resp 16 S; Temp 97.1(TE); Pulse Ox 100% on R/A; Weight 88.45 kg [facility] (R); Height 5 ft. 3 in. (R); 11:36 Body Mass Index 34.54 (88.45 kg, 160.02 cm) [facility] ED Course: 11:31 Patient arrived in ED. 11:[address] MD is Attending Physician. [facility] 11:36 Arm band placed on. [facility] 11:37 Triage completed. [facility] 11:42 COVID swab sent to lab. Flu and/or RSV swab sent to lab. Strep swab sent to lab. [facility] 13:33 Patient has correct armband on for positive identification. Bed in low position. Call ll1 light in reach. Provided Education on: n/a. 13:33 No provider procedures requiring assistance completed. Patient did not have IV access ll during this emergency room visit. Administered Medications: 13:30 Drug: AZITHromycin PO 500 mg PO once Route: PO; [facility] 13:33 Follow up: Response: No adverse reaction 1 Medication: 13:33 VIS not applicable for this client. [facility] Outcome: 13:07 Discharge ordered by . [facility] 13:33 Patient left the ED. [facility] 13:33 Discharged to home ambulatory, [facility] 13:33 Condition: stable 13:33 Discharge instructions given to patient, Instructed on discharge instructions, follow up and referral plans. medication usage, Demonstrated understanding of instructions, follow-up care, medications, Prescriptions given X 2, Signatures: George Lane MD MD cha Calderon, Audri, RN RN aa5 Jp Garcia RN RN 1 Di Fox
--- NOTE | 2023-07-02 13:07 | EDPHYS ---
Physician Documentation [facility] Name: Johanna Meneses Age: 28 yrs Sex: Female : 1995 Arrival Date: 07/02/2023 Time: : Bed IW1 Private MD: ED Physician George Lane HPI: 07/02 12:59 This 28 yrs old Black Female presents to ER via Ambulatory with complaints of Flu neal Symptoms. 12:59 fever , cough , congestion, body aches. The patient or guardian reports cough, that is neal intermittent. Onset: The symptoms/episode began/occurred 2 day(s) ago. Severity of symptoms: At their worst the symptoms were mild, in the emergency department the symptoms are unchanged. Modifying factors: The symptoms are alleviated by cool environment. Associated signs and symptoms: Pertinent positives: rhinorrhea, sore throat. The patient has experienced similar episodes in the past, multiple times. 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 - Social history:: Smoking status: Patient denies any tobacco usage or history of. - Family history:: not pertinent. ROS: 12:59 Constitutional: Negative for fever, chills, and weight loss, Eyes: Negative for injury, neal pain, redness, and discharge, ENT: Negative for injury, pain, and discharge, Neck: Negative for injury, pain, and swelling, Cardiovascular: Negative for chest pain, palpitations, and edema, Abdomen/GI: Negative for abdominal pain, nausea, vomiting, diarrhea, and constipation, Back: Negative for injury and pain, : Negative for injury, bleeding, discharge, and swelling, MS/Extremity: Negative for injury and deformity, Skin: Negative for injury, rash, and discoloration, Neuro: Negative for headache, weakness, numbness, tingling, and seizure, Psych: Negative for depression, anxiety, suicide ideation, homicidal ideation, and hallucinations, Allergy/Immunology: Negative for hives, rash, and allergies, Endocrine: Negative for neck swelling, polydipsia, polyuria, polyphagia, and marked weight changes, 12:59 ENT: Positive for rhinorrhea, sinus congestion, sore throat, 12:59 Respiratory: Positive for cough, with no reported sputum, Exam: 12:59 Constitutional: This is a well developed, well nourished patient who is awake, alert, neal and in no acute distress. Head/Face: Normocephalic, atraumatic. Eyes: Pupils equal round and reactive to light, extra-ocular motions intact. Lids and lashes normal. Conjunctiva and sclera are non-icteric and not injected. Cornea within normal limits. Periorbital areas with no swelling, redness, or edema. ENT: Nares patent. No nasal discharge, no septal abnormalities noted. Tympanic membranes are normal and external auditory canals are clear. Oropharynx with no redness, swelling, or masses, exudates, or evidence of obstruction, uvula midline. Mucous membranes moist. Neck: Trachea midline, no thyromegaly or masses palpated, and no cervical lymphadenopathy. Supple, full range of motion without nuchal rigidity, or vertebral point tenderness. No Meningismus. Chest/axilla: Normal chest wall appearance and motion. Nontender with no deformity. No lesions are appreciated. Cardiovascular: Regular rate and rhythm with a normal S1 and S2. No gallops, murmurs, or rubs. Normal PMI, no JVD. No pulse deficits. Respiratory: Lungs have equal breath sounds bilaterally, clear to auscultation and percussion. No rales, rhonchi or wheezes noted. No increased work of breathing, no retractions or nasal flaring. Abdomen/GI: Soft, non-tender, with normal bowel sounds. No distension or tympany. No guarding or rebound. No evidence of tenderness throughout. Back: No spinal tenderness. No costovertebral tenderness. Full range of motion. Skin: Warm, dry with normal turgor. Normal color with no rashes, no lesions, and no evidence of cellulitis. MS/ Extremity: Pulses equal, no cyanosis. Neurovascular intact. Full, normal range of motion. Neuro: Awake and alert, GCS 15, oriented to person, place, time, and situation. Cranial nerves II-XII grossly intact. Motor strength 5/5 in all extremities. Sensory grossly intact. Cerebellar exam normal. Normal gait. Psych: Awake, alert, with orientation to person, place and time. Behavior, mood, and affect are within normal limits. 12:59 Musculoskeletal/extremity: DVT Exam: No signs of deep vein thrombosis. no pain, no swelling, no tenderness, negative Homans' sign noted on exam, no appreciated bluish discoloration, no erythema, no increased warmth, Vital Signs: 11:36 BP 129 / 80; Pulse 71; Resp 16 S; Temp 97.1(TE); Pulse Ox 100% on R/A; Weight 88.45 kg aa5 (R); Height 5 ft. 3 in. (R); 11:36 Body Mass Index 34.54 (88.45 kg, 160.02 cm) aa5 MDM: 11:33 Patient medically screened. neal 13:03 Differential Diagnosis altered mental status, flu, Obstructed Airway Bronchitis neal Influenza Upper Respiratory Infection Sinusitis Pharyngitis Viral Syndrome. Data reviewed: vital signs, nurses notes, lab test result(s), Flu: negative. Consideration of Admission/Observation Escalation of care including admission/observation considered. I considered the following discharge prescriptions or medication management in the emergency department Medications were administered in the Emergency Department. See MAR. Test considered but Not performed: Labs: no labs. Historians other than the Patient: pt well informed. Care significantly affected by the following chronic conditions: migraine. Counseling: I had a detailed discussion with the patient and/or guardian regarding the historical points, exam findings, and any diagnostic results supporting the discharge/admit diagnosis, lab results. 07/02 11:33 Order name: Flu; Complete Time: 12:51 [facility] 07/02 11:33 Order name: SARS RAPID; Complete Time: 12:51 [facility] 07/02 11:33 Order name: Strep [facility] 07/02 12:15 Order name: Throat Culture EDMS Administered Medications: 13:30 Drug: AZITHromycin PO 500 mg PO once Route: PO; ll1 13:33 Follow up: Response: No adverse reaction ll1 Disposition Summary: 07/02/23 13:07 Discharge Ordered Notes: Location: Home [facility] Problem: new neal Symptoms: have improved neal Condition: Stable neal Diagnosis - Acute upper respiratory infection, unspecified neal - Fever, unspecified neal Followup: neal - With: Private Physician - When: 2 - 3 days - Reason: Recheck today's complaints, Continuance of care, Re-evaluation by your physician Discharge Instructions: - Discharge Summary Sheet neal - Fever, Adult neal - Upper Respiratory Infection, Adult neal - Cool Mist Vaporizer neal - Upper Respiratory Infection, Adult, Egdy-vb-Ddui neal - Cough, Adult, Vmgc-lc-Uogc neal - Viral Respiratory Infection, Xzzs-Ri-Nxsh neal - Cough, Adult [facility] Forms: - Medication Reconciliation Form neal - Thank You Letter neal - Antibiotic Education neal - Prescription Opioid Use neal - Patient Portal Instructions neal - Leadership Thank You Letter neal - Work release form ll1 Prescriptions: - Tessalon Perles 100 mg Oral capsule - take 2 capsule ORAL route every 8 hours As needed; 30 capsule; Refills: 0, neal Product Selection Permitted - Zithromax Z-Cristiano 250 mg Oral tablet - take 1 tablet ORAL route as directed for 5 days Day 1 - take two (2) tablets neal one time. Day 2, 3, 4 , 5 take one (1) tablet once daily.; 6 tablet; Refills: 0, Product Selection Permitted Signatures: Dispatcher [employer] George Cast MD MD cha Calderon, Audri RN RN aa5 Jp Garcia RN RN ll1
[2023-07-02 13:37] VITALS: BP 129/80; TEMP 97.1; O2SAT 100
[2023-07-02] MEDS ORDERED: AZITHROMYCIN 250 MG TAB ONE (13:41)
== END 2023-07-02 13:33 | disposition home or self-care (01) ==
LOC: ER 11:29
DX: J06.9 Acute upper respiratory infection, unspecified (principal); Z11.52 Encounter for screening for COVID-19
CPT/HCPCS: 36415; 87070; 87081; 87804; 87811; 99283

== ENCOUNTER 2023-12-13 16:16 | Emergency (ER) | payer SELFPAY ==
[2023-12-13 17:04] LABS: Specific Gravity > 1.030 (1.005-1.030)
[2023-12-13 17:04] LABS: Absolute Eosinophils 0.1 K/uL (0-0.5); Absolute Lymphocytes (CBC) 1.7 K/uL (0.7-4.9); Absolute Monocytes 0.6 K/uL (0.1-1.3); Absolute Neutrophil 4.6 K/uL (1.8-8.0); Basophils % 0.7 % (0-1.3); Eosinophils % 1.3 % (0-4.4); Hematocrit 35.1 % (36.0-45.0); Hemoglobin 11.9 g/dL (12.0-15.0); Lymphocytes % 24.3 % (15.3-44.8); MCH 31.4 pg (27.0-35.0); MCHC 33.9 g/dL (32.0-36.0); MCV 92.7 fL (80-100); MPV 9.1 fL (7.6-11.3); Monocytes % 7.9 % (3.3-12.3); Neutrophils % 65.8 % (41.7-73.7); Nucleated Red Blood Cells % 0.1 % (0-0); Platelets 235 thou/uL (152-406); RBC Red Blood Cell Count 3.79 M/uL (3.86-4.86); Red Cell Distribution Width 12.8 % (12.1-15.2)
[2023-12-13 17:06] LABS: Specific Gravity > 1.030 (1.005-1.030); Sqamous Epithelial <5 /HPF (None Seen); Urine Bacteria <20 /HPF (<20); Urine Bilirubin NEGATIVE (Negative); Urine Blood Trace (Negative); Urine Clarity Clear (Clear); Urine Color Light-Yellow (Yellow); Urine Culture Reflex Order NOT NEEDED; Urine Glucose NEGATIVE (Negative); Urine Ketones NEGATIVE (Negative); Urine Microscopic Reflex YN ORDER UMIC; Urine Mucus Slight /HPF (None Seen); Urine Nitrite NEGATIVE (Negative); Urine Protein TRACE (Negative); Urine RBC <5 /HPF (None Seen); Urine Urobilinogen 2+ (Normal); Urine WBC <5 /HPF (<5); Urine pH 7.5 (5.0-7.0)
[2023-12-13 17:19] LABS: Albumin 3.9 g/dL (3.4-5.0); Albumin/Globulin Ratio 1.1 (1.1-1.8); Anion Gap 7.7 mEq/L (5.0-15.0); Bilirubin Total 0.3 mg/dL (0.2-1.0); Globulin 3.7 g/dL (2.3-3.5); Potassium 3.7 mEq/L (3.5-5.1); Protein, Total 7.6 g/dL (6.4-8.2)
--- NOTE | 2023-12-13 17:34 | RAD REPORT ---
EXAM DESCRIPTION: US - Transvaginal Study Probe - 12/13/2023 5:24 pm CLINICAL HISTORY: abd cramping, IUD in place;Abd pain Pelvic pain. COMPARISON: No comparisons FINDINGS: The uterus is normal in size, shape and echotexture. The uterus measures . Thin endometrium with IUD present in the expected location. Both ovaries are normal in size, shape and echotexture. The right ovary measures . The left ovary m easures . No ovarian or parovarian lesions. No adnexal masses. Normal Doppler blood flow was demonstrated to both ovaries. No significant pelvic ascites. IMPRESSION: No acute or concerning finding is demonstrated.
--- NOTE | 2023-12-13 17:41 | EDPHYS ---
Physician Documentation [facility] Name: Johanna Meneses Age: 28 yrs Sex: Female : 1995 Arrival Date: 12/13/2023 Time: 16:16 Bed 5 Private MD: ED Physician Freddy Radford HPI: 12/12 16:46 This 28 yrs old Black Female presents to ER via Ambulatory with complaints of Abdominal ec2 Pain. 16:46 Patient arrives today for evaluation of abdominal pain. Patient complaining of lower ec2 abdominal pain along with vaginal spotting. Patient with an IUD in place, states that she has not had a period in the past 5 years since it was placed. Patient reports no nausea or vomiting, denies any previous abdominal surgeries. Patient reports no bowel irregularities. Denies any urinary complaints. Patient reports that she is taken Tylenol with some alleviation in symptoms.. 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 - Infectious Disease History:: Denies. - Social history:: Smoking status: Patient denies any tobacco usage or history of. ROS: 16:46 Constitutional: as per hpi ec2 Exam: 16:46 Constitutional: GEN: NAD Head: atraumatic Eyes: EOMI Ears: External ears are ec2 normal. CV: regular rate LUNGS: no respiratory distress ABD: non-distended, soft, tender in the lower abdomen, not guarding, not rigid. SKIN: no evidence of rashes MSK: no evidence of trauma NEURO: moves all extremities equally Vital Signs: 16:26 BP 126 / 73; Pulse 81; Resp 16; Temp 97.9; Pulse Ox 100% on R/A; Weight 84.82 kg; ll1 Height 5 ft. 3 in. ; Pain 8/10; 17:56 BP 120 / 74; Pulse 81; Resp 16; Temp 98; Pulse Ox 100% on R/A; iw 16:26 Body Mass Index 33.13 (84.82 kg, 160.02 cm) ll1 16:26 Pain Scale: Adult ll1 MDM: 16:46 Data reviewed: vital signs. ED course: Patient arrives today for evaluation of lower ec2 abdominal pain. Examination remarkable for abdominal TTP. Will obtain lab work, ultrasonography. Evaluating for IUD abnormality, , UTI.. 17:01 Patient medically screened. ec2 17:20 ED course: CBC is reassuring. Metabolic profile with appropriate electrolytes, renal ec2 dysfunction with a creatinine of 1.22 and GFR 62 noted. Negative testing. Urine is noninfectious appearing. Lipase within normal ranges. Pending ultrasonography. . 17:40 ED course: Ultrasound shows no acute intra uterine process, no abnormalities noted. ec2 Will discharge home, have patient follow-up with primary care doctor. Have patient follow-up with gynecology as well. . 12/12 16:39 Order name: CBC with Diff; Complete Time: 17:20 ec2 12/12 16:39 Order name: CMP; Complete Time: 17:20 ec2 12/12 16:39 Order name: Lipase; Complete Time: 17:20 ec2 12/12 16:39 Order name: Test, Urine; Complete Time: 17:20 ec2 12/12 16:39 Order name: Urinalysis w/ reflexes; Complete Time: 17:20 ec2 12/12 17:23 Order name: Transvaginal Study Probe; Complete Time: 17:40 EDMS 12/12 16:39 Order name: IV Saline Lock; Complete Time: 17:01 ec2 12/12 16:39 Order name: Labs collected and sent; Complete Time: 17:01 ec2 Administered Medications: No medications were administered Disposition Summary: 12/13/23 17:40 Discharge Ordered Notes: Location: Home ec2 Condition: Stable ec2 Diagnosis - Abnormal uterine and vaginal bleeding, unspecified ec2 Followup: ec2 - With: Private Physician - When: - Reason: Re-evaluation by your physician Discharge Instructions: - Discharge Summary Sheet ec2 - Abnormal Uterine Bleeding, Pima-vp-Vyjh ec2 Forms: - Work release form hb - Medication Reconciliation Form ec2 - Antibiotic Education ec2 - Prescription Opioid Use ec2 - Patient Portal Instructions ec2 - Leadership Thank You Letter ec2 Prescriptions: - methocarbamol 500 mg Oral tablet - take 2 tablets ORAL route 4 times per day; 20 tablet; Refills: 0, Product ec2 Selection Permitted Signatures: Dispatcher [employer] Jp Green RN RN ll1 Freddy Radford MD MD ec2 Corrections: (The following items were deleted from the chart) 17: 16:47 Pelvis Complete+US.RAD.BRZ ordered. EDMS EDMS
--- NOTE | 2023-12-13 17:41 | ER ---
Nurse's Notes [facility] Name: Johanna Meneses Age: 28 yrs Sex: Female : 1995 Arrival Date: 12/13/2023 Time: 16:16 Bed 5 Private MD: Diagnosis: Abnormal uterine and vaginal bleeding, unspecified Presentation: 12/12 16:26 Chief complaint: Patient states: Pelvic pain since Friday. Feels like IUD moved out ll1 of place. Spotting noticed today. No fever. Coronavirus screen: Client denies travel out of the [place] in the last 14 days. At this time, the client does not indicate any symptoms associated with coronavirus-19. Ebola Screen: Patient denies travel to an Ebola-affected area in the 21 days before illness onset. Initial Sepsis Screen: Does the patient meet any 2 criteria? No. Patient's initial sepsis screen is negative. Does the patient have a suspected source of infection? No. Patient's initial sepsis screen is negative. Risk Assessment: Do you want to hurt yourself or someone else? Patient reports no desire to harm self or others. Onset of symptoms was December 10, 2023. 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 - Infectious Disease History:: Denies. - Social history:: Smoking status: Patient denies any tobacco usage or history of. Screenin:02 [facility] ED Fall Risk Assessment (Adult) History of falling in the last 3 months, iw including since admission No falls in past 3 months (0 pts) Confusion or Disorientation No (0 pts) Intoxicated or Sedated No (0 pts) Impaired Gait No (0 pts) Mobility Assist Device Used No (0 pt) Altered Elimination No (0 pt) Score/Fall Risk Level 0 - 2 = Low Risk. Abuse screen: Denies threats or abuse. Denies injuries from another. Nutritional screening: No deficits noted. Tuberculosis screening: No symptoms or risk factors identified. Assessment: 17:01 General: Appears in no apparent distress. Behavior is calm, cooperative. Pain: iw Complains of pain in suprapubic area, right lower quadrant and left lower quadrant. Neuro: Level of Consciousness is awake, alert, obeys commands, Oriented to person, place, time, situation, Moves all extremities. Full function. Cardiovascular: Patient's skin is warm and dry. Respiratory: Respiratory effort is even, unlabored, Respiratory pattern is regular, symmetrical. GI: Abdomen is non-distended, Abd is soft X 4 quads Reports lower abdominal pain. : Reports pain in right in left in suprapubic area lower quadrant(s) vaginal bleeding that is spotty. Derm: Skin is intact, is healthy with good turgor. Musculoskeletal: Range of motion: intact in all extremities. Vital Signs: 16:26 BP 126 / 73; Pulse 81; Resp 16; Temp 97.9; Pulse Ox 100% on R/A; Weight 84.82 kg; ll1 Height 5 ft. 3 in. ; Pain 8/10; 17:56 BP 120 / 74; Pulse 81; Resp 16; Temp 98; Pulse Ox 100% on R/A; iw 16:26 Body Mass Index 33.13 (84.82 kg, 160.02 cm) ll1 16:26 Pain Scale: Adult ll1 ED Course: 16:21 Patient arrived in ED. im 16:22 Arm band placed on. ll1 16:27 Triage completed. ll1 16:29 Niraj Alcantar, ANNI is Primary Nurse. as6 16:34 rFeddy Radford MD is Attending Physician. ec2 16:50 Missed attempt(s): 22 gauge in right antecubital area. Bleeding controlled, band aid iw applied, catheter tip intact. 16:52 Initial lab(s) drawn, by pa, sent to lab. Inserted saline lock: 22 gauge in left iw antecubital area, using aseptic technique. Blood collected. 17:01 Test, Urine Sent. iw 17:01 Urinalysis w/ reflexes Sent. iw 17:26 Transvaginal Study Probe In Process Unspecified. EDMS 17:56 Patient has correct armband on for positive identification. Provided Education on: . iw 17:56 No provider procedures requiring assistance completed. IV discontinued, intact, iw bleeding controlled, No redness/swelling at site. Pressure dressing applied. Administered Medications: No medications were administered Medication: 17:02 VIS not applicable for this client. iw Outcome: 17:40 Discharge ordered by . ec2 17:56 Discharged to home ambulatory, iw 17:56 Condition: good 17:56 Discharge instructions given to patient, Instructed on discharge instructions, follow up and referral plans. Demonstrated understanding of instructions, follow-up care, medications, Prescriptions given X 1, 17:57 Patient left the ED. iw Signatures: Dispatcher [employer] Farideh Galvan RN RN iw Jp Garcia RN RN ll1 Niraj Alcantar RN RN as6 Di Fox Edwin, MD MD ec2
[2023-12-13 18:16] VITALS: BP 120/74; TEMP 98; O2SAT 100
== END 2023-12-13 17:57 | disposition home or self-care (01) ==
LOC: ER 16:16
DX: N93.9 Abnormal uterine and vaginal bleeding, unspecified (principal)
CPT/HCPCS: 36415; 76830; 80053; 81001; 81025; 83690; 85025; 99284